=== PATIENT | female | born 1970 | race Caucasian/White ===

== ENCOUNTER → 2024-07-21 11:28 | Outpatient (CLI) | payer OTHER, SELFPAY ==
--- NOTE | ~2024-07-21 | XR_ITS ---
EXAMINATION: XR chest 2V 07/21/2024 11:49 INDICATION: Acute bronchitis. Covid positive. PROCEDURE: 2 view chest COMPARISON: No prior studies for comparison. FINDINGS: The lungs are clear. The cardiomediastinal silhouette is within normal limits. There are no pleural effusions. There is no pneumothorax suspected. IMPRESSION: 1: NO ACUTE CARDIOPULMONARY DISEASE. Reviewed, dictated and finalized at location [facility].
== END ==
DX: J20.9 Acute bronchitis, unspecified (principal)
CPT/HCPCS: 71046

== ENCOUNTER 2025-03-15 08:45 | Outpatient (CLI) | payer OTHER, SELFPAY ==
--- NOTE | ~2025-03-15 | MR_ITS ---
MRI of the left foot CLINICAL HISTORY: Metatarsalgia TECHNIQUE: Sagittal T1-weighted and STIR images, axial T1-weighted, T2 fat-sat, T1 fat-sat images, an d coronal T1-weighted and proton-density fat-sat images were performed. Following intravenous adminis tration of 15 cc MultiHance gadolinium, T1-weighted fat-sat imaging was performed in the axial, coron al, and sagittal planes. FINDINGS: There is mild degenerative change at the articulation of the first metatarsal head with the sesamoids, with focal areas of subchondral cystic change at the first metatarsal head. Otherwise, luis a ne marrow signals in the visualized foot are unremarkable. No other marrow edema identified. No fract ure or evidence for osteomyelitis. Remaining joint spaces are relatively well-preserved. Flexor and extensor tendons are intact. No intermetatarsal bursitis or Galvin's neuroma. No soft tiss ue mass or fluid collection present. There is minimal amorphous nonspecific soft tissue edema at the plantar aspect of the foot at the level of the second and third MTP joints, with mild postcontrast en hancement in this region. 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 Mild amorphous nonspecific plantar soft tissue edema at the level of the second and third MTP joints. Correlate for localized soft tissue infection or inflammatory process. Reviewed, dictated and finalized at [facility]. IMPRESSION: Mild degenerative change at the first metatarsal articulation with the sesamoid s. Mild amorphous nonspecific plantar soft tissue edema at the level of the second and third MTP joints. Correlate for localized soft tissue infection or inflamm atory process.
== END 2025-03-15 08:46 | disposition home or self-care (01) ==
PROVIDERS: PCP Podiatrist Foot & Ankle Surgery; Visit Provider Podiatrist Foot & Ankle Surgery
DX: M20.22 Hallux rigidus, left foot (principal); M25.476 Effusion, unspecified foot; M77.42 Metatarsalgia, left foot; M67.472 Ganglion, left ankle and foot
CPT/HCPCS: 73720; A9577